=== PATIENT | female | born 1995 | race Caucasian/White ===

== ENCOUNTER 2019-11-13 21:16 | Emergency (ER) | payer OTHER, SELFPAY ==
[2019-11-13 21:21] VITALS: BP 104/67; PULSE 88; RESP 18; TEMP 36.8; O2SAT 99; BMI 28.1
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
[2019-11-13 21:52] LABS: Basophils # 0.1 10^3/uL (0.0-0.1); Basophils % 0.9 %; Eosinophils # 0.2 10^3/uL (0.0-0.8); Eosinophils % 1.6 %; Hematocrit 39.9 % (37.0-47.0); Hemoglobin 12.9 g/dL (11.5-15.3); Lymphocytes # 2.7 10^3/uL (0.8-4.8); Lymphocytes % 26.5 %; Mean Corpuscular HGB Conc 32.3 g/dL (30.0-36.0); Mean Corpuscular Hemoglobin 29.4 pg (28.0-34.0); Mean Corpuscular Volume 90.9 fL (81-99); Mean Platelet Volume 8.8 fL (7.4-10.4); Monocytes # 0.4 10^3/uL (0.2-0.9); Monocytes % 3.6 %; Neutrophils # 6.8 10^3/uL (1.8-7.7); Neutrophils % 67.1 %; Nucleated Red Blood Cells % 0 %; Platelet Count 331 10^3/cmm (130-400); Red Blood Count 4.39 10^6/uL (4.1-5.3); Red Cell Distribution Width 12.3 % (12.1-15.1); White Blood Count 10.2 10^3/uL (4.0-10.0)
[2019-11-13 22:10] LABS: Alanine Aminotransferase 112 U/L (0-33); Albumin Level 4.6 g/dL (3.5-5.2); Alkaline Phosphatase 55 IU/L (35-105); Anion Gap 16.9 (5-19); Aspartate Amino Transferase 62 U/L (0-32); Blood Urea Nitrogen 9 mg/dL (6-20); Calcium 9.7 mg/dL (8.5-10.5); Carbon Dioxide 22 mmol/L (22-29); Chloride 100 mmol/L (98-107); Globulin 2.5 g/dL (1.3-4.6); Glomerular Filtration Rate 120.8 mL/min (90-130); Glucose 179 mg/dL (74-109); Potassium 3.9 mmol/L (3.5-5.1); Sodium 135 mmol/L (136-145); Total Bilirubin 0.9 mg/dL (0.15-1.2); Total Protein 7.1 g/dL (6.6-8.7)
[2019-11-13 22:30] LABS: Bilirubin Urine 1+ (NEGATIVE); Blood Urine Neg (Negative); Glucose Urine UA Norm (Normal); Ketones Urine 1+ (Negative); Leukocyte Esterase Urine Trace (Negative); Nitrate Urine Negative (Negative); Protein Urine Trace (Negative); Urine Appearance Clear (CLEAR); Urine Color Dark Yellow (Yellow); Urobilinogen Urine 1 mg/dL (Negative); pH Urine 5 (5-7)
[2019-11-13 22:31] LABS: Bacteria Urine 1+; Mucus Urine 3+; RBC Urine 0-4 /hpf (0-2)
[2019-11-13 23:08] VITALS: BP 122/73; PULSE 99; RESP 18; O2SAT 96
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
[2019-11-13] MEDS: sodium chloride 0.9% 1,000 ML 999 ML IV (23:54)
[2019-11-13] MEDS: cefTRIAXone 1,000 MG in sodium chloride 0.9% (plus) 50 ML 100 MG IV (23:56)
[2019-11-14 01:45] VITALS: BP 118/74; PULSE 89; RESP 17; O2SAT 100
== END 2019-11-14 01:46 | disposition home or self-care (01) ==
PROVIDERS: Nurse Practitioner Family; Emergency Provider Emergency Medicine; Family Provider Nurse Practitioner Family; PCP Nurse Practitioner Family
DX: O9A.211 Injury, poisoning and certain other consequences of external causes complicating pregnancy, first trimester (principal); S30.1XXA Contusion of abdominal wall, initial encounter; Z3A.01 Less than 8 weeks gestation of pregnancy; O23.41 Unspecified infection of urinary tract in pregnancy, first trimester; Y04.2XXA Assault by strike against or bumped into by another person, initial encounter; Y92.238 Other place in hospital as the place of occurrence of the external cause; Y99.0 Civilian activity done for income or pay
CPT/HCPCS: 76805; 80053; 81001; 84702; 85025; 86900; 96360; 96365; 99282; 99283; A9270; J0696; J7030

== ENCOUNTER → 2019-11-26 10:09 | Outpatient (BNVA) | payer OTHER, SELFPAY | PROVIDERS: Family Provider Nurse Practitioner Family; PCP Nurse Practitioner Family; Referring Provider Family Medicine; Visit Provider Family Medicine | DX: Z34.91 Encounter for supervision of normal pregnancy, unspecified, first trimester (principal); Z87.440 Personal history of urinary (tract) infections; S30.1XXA Contusion of abdominal wall, initial encounter; X58.XXXA Exposure to other specified factors, initial encounter | CPT/HCPCS: 81003 ==

== ENCOUNTER → 2020-01-08 11:56 | Outpatient (BNVA) | payer OTHER, SELFPAY | PROVIDERS: Family Provider Nurse Practitioner Family; PCP Nurse Practitioner Family; Visit Provider Registered Nurse | DX: N39.0 Urinary tract infection, site not specified (principal) | CPT/HCPCS: 81000; 81025 ==

== ENCOUNTER → 2020-02-12 14:22 | Outpatient (BNVA) | payer OTHER, SELFPAY | PROVIDERS: Family Provider Nurse Practitioner Family; PCP Nurse Practitioner Family; Visit Provider Registered Nurse | DX: N91.2 Amenorrhea, unspecified (principal) | CPT/HCPCS: 81025 ==

== ENCOUNTER 2020-03-04 10:39 | Outpatient (CLI) | payer OTHER, SELFPAY ==
--- NOTE | 2020-03-04 10:48 | US_ITS ---
WS: [id number] ULTRASOUND EARLY TECHNIQUE: Transabdominal sonography of the pelvis was performed. Followed by transvaginal sonography to better evaluate the uterus and ovaries. CLINICAL INFORMATION: ENCOUNTER FO SCREENING FOR UNCERTAIN DATES Beta hCG: Unknown. COMPARISON: None. FINDINGS: UTERUS AND GESTATIONAL SAC Intrauterine gestations: Cervix measures 4.5 cm Estimated gestational age: 10w5d. Estimated delivery September 25, 2020 [place] rump length (CRL): 3.8 cm. heart motion: 167 BPM. Subchorionic hemorrhage: None. OVARIES Right ovary: Normal. Left ovary: Not visualized FREE FLUID None. 2. Estimated gestational age: 10w5d 3. Cervix measures 4.5 cm. 4. Normal right ovary. Left ovary not visualized. US/US OB <= 14 weeks fetus [id number] IMPRESSION: 1. Single live intrauterine .
== END 2020-03-04 10:40 | disposition home or self-care (01) ==
LOC: RAD 10:43
PROVIDERS: PCP Registered Nurse; Visit Provider Family Medicine
DX: Z36.87 Encounter for antenatal screening for uncertain dates (principal)
CPT/HCPCS: 76801

== ENCOUNTER 2020-04-20 14:13 | Emergency (ER) | payer OTHER, SELFPAY ==
[2020-04-20 14:28] VITALS: BP 107/68; PULSE 97; RESP 16; TEMP 36.6; O2SAT 97; BMI 29.8
--- NOTE | 2020-04-20 14:50 | W.ED.PREGNAN ---
HPI - General: Chief complaint: OB/Uterine Contractions Stated complaint: sent over by vincent Time Seen by Provider: 04/20/20 14:43 Source: patient Mode of arrival: ambulatory Limitations: no limitations History of Present Illness: HPI Narrative: 24-year-old female who is currently 17 weeks . Patient states she has not felt the baby move since Saturday and was concerned that she has had miscarriages in the past. She denies any vaginal bleeding. She denies any vomiting. She has had very mild abdominal pain. Date of Last Menstrual Period: 10/10/19 Associated symptoms: Deny abdominal pain, dysuria, headache(s), nausea or vomiting Review of Systems Const: Denies: fever(s), chills, body aches or change in appetite Eyes: Denies: blurry vision or eye discomfort ENMT: Denies: throat pain or dental pain Card: Denies: chest pain Resp: Denies: dyspnea GI: Denies: abdominal pain, nausea, vomiting or diarrhea : Denies: dysuria Musc: Denies: neck pain or back pain Skin/Breast: Denies: rash Neuro: Denies: headache(s) Psych: Denies: depression [place]/Lymph: Denies: easy bruising All/Imm: Denies: urticaria PFSH ED PFSH: Social History Smoking and tobacco status: never smoked Alcohol intake: never Female Reproductive History: Date of last menstrual period: 10/10/19 Physical Exam Const: COMMON NORMALS: no acute distress, patient oriented x3 and healthy appearing HENMT: COMMON NORMALS: normocephalic and atraumatic HEAD & SCALP: normocephalic and atraumatic Eye: COMMON NORMALS: Equal, round and reactive pupils present and EOMs intact bilaterally PUPIL: Yes Equal, round and reactive pupils present Neck/C-Spine: COMMON NORMALS: full ROM and supple Chest: COMMONS NORMALS: normal inspection of the chest and normal palpation of entire chest wall Resp: COMMON NORMALS: normal respiratory effort, No retractions, No use of accessory muscles and clear to auscultation bilaterally AUSCULTATION: clear to auscultation bilaterally Cardio: COMMON NORMALS: regular rate, regular rhythm and No murmurs present (Cardio) RATE: regular rate RHYTHM: regular rhythm GI: COMMON NORMALS: Normal to inspection, nondistended, normoactive bowel sounds present, Soft to palpation, non-tender and no masses PALPATION: Yes Soft to palpation Extremity: COMMON NORMALS: normal to inspection and full ROM Neuro: COMMON NORMALS: patient oriented x3, moves all extremities and no focal motor deficits Psych: COMMON NORMALS: mental status grossly normal, Normal thought process present and cooperative THOUGHT PROCESS: Normal thought process present Skin: COMMON NORMALS: no rashes or lesions noted and no wounds GENERAL SKIN EXAM: no rashes or lesions noted Course Vital Signs: Vital signs: Vital Signs Temperature 97.9 F 04/20/20 14:28 Pulse Rate 89 04/20/20 14:56 Respiratory Rate 18 04/20/20 14:56 Blood Pressure 99/64 04/20/20 14:56 Pulse Oximetry 97 04/20/20 14:56 MDM - OB/Uterine Contractions MDM Narrative: Medical decision making narrative: Patient presents here with decreased movement. I did a bedside ultrasound that showed IUP with movement and heart rate in the 150s. Patient is well-appearing here and is stable for discharge. Discharge Plan Discharge Patient Disposition: Home, Self-Care Clinical Impression: Qualifiers: Weeks of gestation: 15 weeks Qualified Code(s): Z3A.15 - 15 weeks gestation of Condition: Stable Prescriptions: No Action prenat.vits,khushbu,caw-[id number] Tablet 1 tab PO DAILY RF: 0 Discharge Orders: Discharge Order (Routine); Ordered 04/20/20 Ordered By: Oliva Sanders Referrals: Chelsy Medina FNP [Primary Care Provider] - Discharge Diet: Advance as tolerated Discharge Activity: Resume usual activity Patient Instructions: (ED) Coding Level of Care Code ED Strategic Debriefing Specialist for Chg Fwd Exam Comprehensive
[2020-04-20 14:56] VITALS: BP 99/64; PULSE 89; RESP 18; O2SAT 97
== END 2020-04-20 14:56 | disposition home or self-care (01) ==
LOC: ER 15:00
PROVIDERS: Emergency Provider Emergency Medicine; PCP Registered Nurse
DX: Z03.89 Encounter for observation for other suspected diseases and conditions ruled out (principal)
CPT/HCPCS: 12345; 99281

== ENCOUNTER 2020-04-27 06:53 | Outpatient (CLI) | payer OTHER, SELFPAY ==
--- NOTE | 2020-04-27 07:23 | US_ITS ---
WS: [id number] ULTRASOUND OB COMPLETE TECHNIQUE: Complete ultrasound. CLINICAL INFORMATION: SUSANA COMPARISON: None. FINDINGS: Single interuterine gestation is identified with cephalic presentation. Placenta is posterior. Placenta grade 0. Normal amniotic fluid volume. cardiac activity: 150 BPM. AGA: 18w3d TAMANNA by ultrasound: 09/25/2020 Estimated weight: 239 g BDP: 4.1 cm = 18w2d HC: 15.4 cm = 18w2d AC: 12.9 cm = 18w3d FEMUR LENGTH: 2.7 cm = 18w3d Anatomic survey: Anatomic survey is normal. Normal stomach. Kidneys and bladder are normal. Normal 3 vessel cord. Norm al 3 vessel cord insertion. Normal 4 chamber heart. Normal spine. Intracranial contents are normal. N ormal posterior fossa and cisterna magna. US/US OB >= 14 weeks fetus [id number] IMPRESSION: 1. Single intrauterine with visualized cardiac activity. AGA 18w3d w ith TAMANNA 09/25/2020. 2. Placenta is posterior. Low-lying placenta. Recommend third trimester follow -up. 3. anatomic survey is normal. 4. Normal amniotic fluid volume.
== END 2020-04-27 06:54 | disposition home or self-care (01) ==
LOC: RAD 06:55
PROVIDERS: PCP Registered Nurse; Visit Provider Family Medicine
DX: Z36.89 Encounter for other specified antenatal screening (principal); Z3A.18 18 weeks gestation of pregnancy
CPT/HCPCS: 76805

== ENCOUNTER 2020-05-27 11:49 | Outpatient (CLI) | payer OTHER, SELFPAY ==
[2020-05-27 13:20] LABS: Basophils % 0.3 %; Eosinophils # 0.1 10^3/uL (0.0-0.8); Eosinophils % 0.9 %; Hematocrit 30.5 % (37.0-47.0); Hemoglobin 9.7 g/dL (11.5-15.3); Lymphocytes # 2.2 10^3/uL (0.8-4.8); Mean Corpuscular HGB Conc 31.8 g/dL (30.0-36.0); Mean Platelet Volume 8.8 fL (7.4-10.4); Monocytes # 0.6 10^3/uL (0.2-0.9); Neutrophils # 6.56 10^3/uL (1.8-7.7); Neutrophils % 69.2 %; Nucleated Red Blood Cells % 0 %; Platelet Count 303 10^3/cmm (130-400); Red Blood Count 3.35 10^6/uL (4.1-5.3); Red Cell Distribution Width 13.8 % (12.1-15.1); White Blood Count 9.5 10^3/uL (4.0-10.0)
[2020-05-27 13:24] LABS: Specific Gravity, Urine 1.015 (1.005-1.030); Urine Appearance SL Hazy (CLEAR); Urine Color Yellow (Yellow); pH Urine 6.5 (5-7)
[2020-05-27 13:25] LABS: Add Urine Microscopic? YES; Bilirubin Urine Neg (NEGATIVE); Blood Urine Neg (Negative); Glucose Urine UA Norm (Normal); Ketones Urine Negative (Negative); Leukocyte Esterase Urine Trace (Negative); Nitrate Urine Negative (Negative); Protein Urine Neg (Negative); Squamous Epithelial Cell Urine 25-40 (0-5); Urobilinogen Urine 1 mg/dL (Negative); WBC Urine 0-4 /hpf (0-5)
[2020-05-27 13:26] LABS: Add Urine Culture? No; Bacteria Urine 1+; Mucus Urine 3+
[2020-05-27 13:30] LABS: Blood Urea Nitrogen 8 mg/dL (6-20); Calcium 9.1 mg/dL (8.5-10.5); Carbon Dioxide 24 mmol/L (22-29); Chloride 99 mmol/L (98-107); Glomerular Filtration Rate 192.9 mL/min (90-130); Glucose 87 mg/dL (65-115); Osmolality Calculated 269 mOsm/kg (285-295); Sodium 132 mmol/L (136-145)
[2020-05-27 13:38] LABS: Anion Gap 12.9 (5-19); Potassium 3.9 mmol/L (3.5-5.1)
== END 2020-05-27 11:50 | disposition home or self-care (01) ==
LOC: LAB 11:50
PROVIDERS: PCP Registered Nurse; Visit Provider Nurse Practitioner Family
DX: R42 Dizziness and giddiness (principal)
CPT/HCPCS: 80048; 81001; 85025

== ENCOUNTER 2020-07-03 09:00 | Outpatient (CLI) | payer OTHER, SELFPAY ==
[2020-07-03 09:07] VITALS: TEMP 37.1; BMI 33.7
[2020-07-03 09:28] LABS: Nitrazine Paper, PH Negative
[2020-07-03 09:42] LABS: Actim Prom Negative
[2020-07-03 09:43] VITALS: BP 111/61; BP 132/69; PULSE 100; PULSE 94
[2020-07-03 09:54] VITALS: BP 100/51; PULSE 97
== END 2020-07-03 10:01 | disposition home or self-care (01) ==
LOC: OPOB 09:05 → OBGYN 09:58
PROVIDERS: PCP Registered Nurse; Visit Provider Family Medicine
DX: O42.90 Premature rupture of membranes, unspecified as to length of time between rupture and onset of labor, unspecified weeks of gestation (principal); Z3A.00 Weeks of gestation of pregnancy not specified
CPT/HCPCS: 59025; 83986; 84112; 99211

== ENCOUNTER 2020-07-05 10:32 | Outpatient (CLI) | payer OTHER, SELFPAY ==
--- NOTE | 2020-07-05 10:42 | US_ITS ---
WS: [id number] ULTRASOUND OB LIMITED TECHNIQUE: Limited ultrasound examination of the fetus. CLINICAL INFORMATION: LOW LYING PLACENTA/SUPERVISION NORMAL COMPARISON: None. FINDINGS: Cervix measures 5.1 cm Single interuterine gestation. Placental location is posterior. Placenta previa is seen today with placenta overlying the cervical o s. Recommend third trimester follow-up. Placenta grade: 0. heart rate 150 BPM. [place] [id number] IMPRESSION: 1. Single intrauterine gestation. 2. Placenta is posterior with placenta previa. Placenta appears to overlie the cervical os. Recommend third trimester follow-up. 3. Cervix is long and closed measuring 5.1 cm.
== END 2020-07-05 10:33 | disposition home or self-care (01) ==
LOC: RAD 10:35
PROVIDERS: PCP Registered Nurse; Visit Provider Family Medicine
DX: O44.00 Complete placenta previa NOS or without hemorrhage, unspecified trimester
CPT/HCPCS: 76816

== ENCOUNTER 2020-07-27 10:11 | Outpatient (CLI) | payer OTHER, SELFPAY ==
--- NOTE | 2020-07-27 10:19 | US_ITS ---
WS: [id number] ULTRASOUND OB FOCUSED HISTORY: HIGH RISK ,3RD TRIMESTER/PLACENTA PREVIA COMPARISON: 07/05/2020 Placenta is posterior and grade 1. The very tip of the placenta is within 2 cm of the internal cervic al os and considered low lying. heart rate at 138 BPM. There is an abundant amount of amniotic fluid. Amniotic fluid index is 27.5 cm which is consistent wi th polyhydramnios. Fluid is above the 97th percentile. Fluid has increased since the prior study. This is a limited evaluation of the fetus. The urinary bladder and stomach are well distended. [place] [id number] IMPRESSION: 1. Posterior low-lying placenta. 2. Polyhydramnios. Significant increase in the amount of amniotic fluid since the prior study of uncertain etiology.
== END 2020-07-27 10:12 | disposition home or self-care (01) ==
LOC: US 10:12
PROVIDERS: PCP Registered Nurse; Visit Provider Family Medicine
DX: O09.93 Supervision of high risk pregnancy, unspecified, third trimester (principal); O44.12 Complete placenta previa with hemorrhage, second trimester; O40.3XX0 Polyhydramnios, third trimester, not applicable or unspecified
CPT/HCPCS: 76816

== ENCOUNTER 2020-08-22 14:05 | Observation (INO) | payer OTHER, SELFPAY ==
[2020-08-22 14:15] VITALS: BMI 34.1
[2020-08-22 14:42] VITALS: BP 110/72; PULSE 100
[2020-08-22 14:59] VITALS: BP 116/73; PULSE 96
[2020-08-22 15:19] VITALS: BP 114/67; PULSE 98
[2020-08-22 15:36] VITALS: BP 114/67; PULSE 98
== END 2020-08-22 15:37 | disposition home or self-care (01) ==
LOC: OBGYN 14:14
PROVIDERS: Admitting Provider Family Medicine; PCP Registered Nurse; Visit Provider Family Medicine
DX: O26.899 Other specified pregnancy related conditions, unspecified trimester (principal); Z3A.00 Weeks of gestation of pregnancy not specified; R10.9 Unspecified abdominal pain
CPT/HCPCS: 59025; 99211; G0378; G0379

== ENCOUNTER 2020-08-26 12:57 | Outpatient (CLI) | payer OTHER, SELFPAY ==
[2020-08-26 13:23] LABS: Basophils % 0.1 %; Eosinophils # 0.2 10^3/uL (0.0-0.8); Eosinophils % 2.3 %; Hematocrit 28.8 % (37.0-47.0); Lymphocytes # 1.7 10^3/uL (0.8-4.8); Lymphocytes % 22.3 %; Mean Corpuscular HGB Conc 31.3 g/dL (30.0-36.0); Mean Corpuscular Hemoglobin 26.7 pg (28.0-34.0); Mean Corpuscular Volume 85.5 fL (81-99); Mean Platelet Volume 8.8 fL (7.4-10.4); Monocytes # 0.5 10^3/uL (0.2-0.9); Monocytes % 6.4 %; Neutrophils # 5.23 10^3/uL (1.8-7.7); Neutrophils % 68.2 %; Nucleated Red Blood Cells % 0 %; Platelet Count 237 10^3/cmm (130-400); Red Blood Count 3.37 10^6/uL (4.1-5.3); Red Cell Distribution Width 15.9 % (12.1-15.1); White Blood Count 7.7 10^3/uL (4.0-10.0)
[2020-08-26 13:41] LABS: Alanine Aminotransferase 24 U/L (0-33); Albumin Level 3.4 g/dL (3.5-5.2); Alkaline Phosphatase 121 IU/L (35-105); Anion Gap 13.9 (5-19); Aspartate Amino Transferase 28 U/L (0-32); Blood Urea Nitrogen 6 mg/dL (6-20); Calcium 8.9 mg/dL (8.5-10.5); Carbon Dioxide 23 mmol/L (22-29); Chloride 103 mmol/L (98-107); Globulin 2.7 g/dL (1.3-4.6); Glomerular Filtration Rate 191.5 mL/min (90-130); Glucose 109 mg/dL (65-115); Osmolality Calculated 280 mOsm/kg (285-295); Potassium 3.9 mmol/L (3.5-5.1); Sodium 136 mmol/L (136-145); Total Bilirubin 0.6 mg/dL (0.15-1.2); Total Protein 6.1 g/dL (6.6-8.7); Uric Acid 4.5 mg/dL (2.4-5.7)
[2020-08-26 13:54] LABS: Urine Creatinine 151 mg/dL (28-217); Urine Protein Random 20 mg/dL
[2020-08-26 13:59] LABS: UPRO/UCREAT Ratio 0.13 mg/mg CR
== END 2020-08-26 12:58 | disposition home or self-care (01) ==
LOC: LAB 13:01
PROVIDERS: PCP Registered Nurse; Visit Provider Family Medicine
DX: O40.3XX0 Polyhydramnios, third trimester, not applicable or unspecified (principal); L29.9 Pruritus, unspecified
CPT/HCPCS: 80053; 82570; 84156; 84550; 85025

== ENCOUNTER 2020-09-25 17:10 | Inpatient (IN) | payer OTHER, SELFPAY ==
[2020-09-25] VITALS (38 sets, daily range): BP systolic 0–136; BP diastolic 0–80; PULSE 78–105; RESP 16; TEMP 36.7–36.8; BMI 36.4
--- NOTE | 2020-09-25 20:09 | PM.HP ---
Providers/Chief Complaint Admitting Physician: Robin Gudino MD Primary Care Provider: SHEBA Aguayo Chief Complaint: Induction of Labor History of Present Illness Tisha Feliz is a 25 year old at 40.1 weeks gestation by 10-week ultrasound inconsistent with LMP. Her is complicated by history of gestational hypertension on aspirin 81 mg during this through 37 weeks, history of frequent miscarriage, anemia. The patient has been feeling well and presents for a scheduled induction of labor due to postdates. The patient denies any chest pains, shortness of breath, cough, fever, sore throat, nausea, vomiting, diarrhea, constipation, dysuria, leakage of fluid, vaginal bleeding. Medications/Allergies Home Medications Medication Instructions Recorded Confirmed Last Taken Type prenat.vits,khushbu,nsq-seba-qlbuf 1 tab PO DAILY 03/24/20 08/16/20 07/03/20 08:00 History 1 tab aspirin [Aspirin Childrens] 81 mg PO DAILY 07/03/20 08/16/20 07/03/20 08:00 History 81 mg acetaminophen 500 mg tablet 500 mg PO Q6H PRN 08/16/20 08/16/20 Unknown History ferrous sulfate 325 mg (65 mg 325 mg PO BID tab 08/16/20 08/16/20 Unknown History iron) tablet Allergies Allergy/AdvReac Type Severity Reaction Status Date / Time No Known Allergies Allergy Verified 08/16/20 09:18 PFSH Acute PFSH: Medical History (Updated 09/25/20 @ 20:11 by Robin Gudino MD) Request for sterilization Family History (Updated 08/16/20 @ 09:21 by Linda Galicia RN) Family/Other Thyroid condition maternal aunts Mother Thyroid condition Denies family history of Colon cancer Ovarian cancer Diabetes Clotting disorder Heart disease Hyperlipidemia Breast cancer Anesthesia complication Bleeding disorder Hypertension Uterine cancer Stroke Social History Smoking and tobacco status: never smoked Alcohol intake: never Female Reproductive History: Date of last menstrual period: 10/10/19 : 4 Vitals/I&O/Wt Last Vital Signs Temp 98.2 F 09/25/20 17:46 Pulse 86 09/25/20 19:56 Resp 16 09/25/20 17:46 BP 120/75 12/13/20 19:56 Weight last 48 hrs Weight 219 lb Physical Exam Narrative: EXAM NARRATIVE: General: Alert and oriented x3 Eyes: Pupils equal round and reactive to light and accommodation Mouth: Mucous membranes moist, pharynx non-erythematous Cardiac: Regular rate and rhythm without murmurs Lungs: Clear to auscultation bilaterally without wheezes, crackles or rhonchi Abdomen: Soft, non-tender, fundus consistent with gestational age Extremities: Trace edema in the bilateral lower extremities A&P Assessment and plan (1) Anemia: Status: Acute (2) Intrauterine : Status: Acute Additional A&P Information The patient presents for induction of labor secondary to postdates. heart tones are currently in the mid 140s with moderate variability and good accelerations. The patient is having contractions every 7 to 10 minutes. The patient's initial exam was 1 cm and thick. The is vertex. We will proceed with induction of labor with Cytotec. I discussed the benefits and risks of induction of labor and the use of Cytotec and Pitocin with the patient and her significant other. They are in agreement with proceeding with induction of labor. All questions were answered. Attestations Medical Necessity Statement*: The patient will be here for greater than 2 midnights due to routine intrapartum and management of labor and delivery. Coding Level of Care Code Acute Sprinkling Truck Driver for Isrealg Caprice Diagnoses Anemia D64.9 Intrauterine Z34.90
[2020-09-25 21:07] LABS: Basophils # 0.1 10^3/uL (0.0-0.1); Basophils % 0.6 %; Eosinophils # 0.1 10^3/uL (0.0-0.8); Eosinophils % 0.6 %; Hematocrit 34.5 % (37.0-47.0); Hemoglobin 11.2 g/dL (11.5-15.3); Lymphocytes # 2.2 10^3/uL (0.8-4.8); Lymphocytes % 27.6 %; Mean Corpuscular HGB Conc 32.5 g/dL (30.0-36.0); Mean Corpuscular Hemoglobin 28.1 pg (28.0-34.0); Mean Corpuscular Volume 86.7 fL (81-99); Monocytes # 0.4 10^3/uL (0.2-0.9); Monocytes % 4.9 %; Neutrophils # 5.35 10^3/uL (1.8-7.7); Neutrophils % 65.9 %; Nucleated Red Blood Cells % 0 %; Platelet Count 237 10^3/cmm (130-400); Red Blood Count 3.98 10^6/uL (4.1-5.3); Red Cell Distribution Width 19.1 % (12.1-15.1); White Blood Count 8.1 10^3/uL (4.0-10.0)
[2020-09-25] MEDS: dextrose 5%-lactated ringers 1,000 ML 125 ML IV (21:09)
[2020-09-25] MEDS: miSOPROStol 100 mcg tablet 25 MCG VAGINAL (21:42)
[2020-09-26] VITALS (95 sets, daily range): BP systolic 0–153; BP diastolic 0–89; PULSE 65–97; RESP 14–18; TEMP 36.4–36.8; O2SAT 94–98
[2020-09-26] MEDS: miSOPROStol 100 mcg tablet 25 MCG VAGINAL (01:51)
[2020-09-26] MEDS: butorphanol 2 mg/mL SDV 1 mL 1 MG IVP (03:47)
[2020-09-26] MEDS: lactated ringers 1,000 ML 999 ML IV (05:14)
--- NOTE | 2020-09-26 06:53 | ANES.PREANE2 ---
Pre-Anesthetic Assessment Pre-Anesthetic Assessment: Height/Weight: Height 1.65 m Weight 99.337 kg Temp Pulse Resp BP Pulse Ox 97.8 F 82 14 134/73 97 09/26/20 04:43 09/26/20 06:52 09/26/20 04:43 09/26/20 06:52 09/26/20 06:41 Preop Diagnosis: IUP Meds/Allergies Current Medications: Current Medications Generic Name Dose Route Start Last Admin Trade Name Freq PRN Reason Stop Dose Admin Butorphanol Tartra te 1 mg 09/25/20 17:45 09/26/20 03:47 Butorphanol 2 Mg /Ml Sdv 1 Ml IVP 1 mg Q2H PRN Administration SEVERE PAIN Dextrose/Lactated Ringer's 1,000 mls @ 125 m ls/hr 09/25/20 17:45 09/26/20 05:31 Dextrose 5%-Lact ated Ringers IV Not Given .Q8H MELANIE Lactated Ringer's 1,000 mls @ 999 m ls/hr 09/26/20 05:27 09/26/20 05:14 Lactated Ringers IV 999 mls/hr .Q1H1M PRN Administration See label comment s PFSH Anesthesia PFSH: Medical History (Updated 09/25/20 @ 20:11 by Robin Gudino MD) Request for sterilization Family History (Updated 08/16/20 @ 09:21 by Linda Galicia RN) Family/Other Thyroid condition maternal aunts Mother Thyroid condition Denies family history of Colon cancer Ovarian cancer Diabetes Clotting disorder Heart disease Hyperlipidemia Breast cancer Anesthesia complication Bleeding disorder Hypertension Uterine cancer Stroke Social History Smoking and tobacco status: never smoked Alcohol intake: never Female Reproductive History: Date of last menstrual period: 10/10/19 : 4 Data Anesthesia CBC & Chem 7: 09/25/20 20:42 Other Labs: Laboratory Results - last 48 hr 09/25/20 20:42 WBC 8.1 RBC 3.98 L Hgb 11.2 L Hct 34.5 L MCV 86.7 MCH 28.1 MCHC 32.5 RDW 19.1 H Plt Count 237 MPV 9.0 Neut % (Auto) 65.9 Lymph % (Auto) 27.6 [place] % (Auto) 4.9 Eos % (Auto) 0.6 Baso % (Auto) 0.6 Neut # (Auto) 5.35 Lymph # (Auto) 2.2 [place] # (Auto) 0.4 Eos # (Auto) 0.1 Baso # (Auto) 0.1 Nucleated RBC % (auto) 0 Nucleated RBCs # 0.0 Cardiac Studies: No Data to Display Anesthesia Procedures Date of Procedure: 09/26/20 Epidural: Time Out Performed: Yes Consents Signed: Procedure Consent and NPO Consent Consent: requested by attending/covering physician, from patient, risks and benefits reviewed and patient agrees to proceed Lumbar Level: L3-L4 Epidural position: sitting (100 mcg fentanyl given for pain ) Epidural procedure: sterile prep of area, 1% lidocaine to numb the area (3 cc ), 18 g needle (L3-L4 interspace ), test dose given (3c ), 0.2% Ropivacaine bolus ml (8 cc ), placed PCEA, no systemic response, sterile dressing applied and 0.2% Ropiavacaine @ mls/hr (13 mls/hr ) Additional Comments: A[place] @ 8 cm catheter threaded to 14 cm at skin, pt states she is feeling less pain wit contractions an legs are heavy bilaterally. Pt VSS see OBYX system
--- NOTE | 2020-09-26 07:49 | PM.PN ---
Subjective Subjective: Interval history: The patient is currently feeling well. Her water broke at approximately 3 AM today. Clear fluid was noted. The patient received a laboring epidural and is currently comfortable. She denies any other concerns. Vitals/I&O/Wt Last Vital Signs Temp 97.8 F 09/26/20 04:43 Pulse 91 09/26/20 07:43 Resp 14 09/26/20 04:43 BP 126/81 09/26/20 07:43 Pulse Ox 97 09/26/20 06:41 09/25/20 09/26/20 09/26/20 22:59 06:59 14:59 Intake Total 197.917 / 197.917 529.167 / 727.084 Balance 197.917 / 197.917 529.167 / 727.084 Weight last 48 hrs Weight 219 lb Physical Exam Narrative: EXAM NARRATIVE: General: Alert and oriented x3 Cardiac: Regular rate and rhythm without murmurs Lungs: Clear to auscultation bilaterally without wheezes, crackles or rhonchi Abdomen: Soft, non-tender, fundus consistent with gestational age Extremities: Trace edema in the bilateral lower extremities Urinary Catheter Management^: Nicholson: Cath Placed During This Visit: yes Urinary Catheter Date of Insertion: 09/26/20 Urinary Catheter Time of Insertion: 07:25 Data : 09/25/20 20:42 A&P Assessment and plan (1) Anemia: Status: Acute (2) Intrauterine : Status: Acute Additional A&P Information The patient is currently doing well. We will go ahead and start IV Pitocin for augmentation of labor. Contractions are currently every 5 minutes. heart tones are in the mid 130s with moderate variability and good accelerations. The patient is comfortable with her epidural. All questions were answered. Attestations Medical Necessity Statement*: The patient continues to need inpatient care as we continue with induction of labor. Her stay will cross 2 midnights. Coding Level of Care Code Acute Retail Key Holder for Chg Fwd Diagnoses Anemia D64.9 Intrauterine Z34.90
[2020-09-26] MEDS: oxytocin 30 UNIT/500 ML BAG IV (08:04)
[2020-09-26] MEDS: ondansetron 2 mg/ML SDV 2 mL 4 MG IVP ×3 (10:27→21:41)
--- NOTE | 2020-09-26 11:38 | P.PCNOB_ITS ---
Delivery Note: Date of delivery: September 26, 2020 Pre-delivery diagnoses: 1. Intrauterine at 40.2 weeks gestation 2. Anemia 3. History of gestational hypertension on aspirin through 37 weeks gestation Post-delivery diagnoses: 1. Intrauterine status post spontaneous vaginal delivery at 40.2 weeks gestation 2. Anemia 3. History of gestational hypertension on aspirin through 37 weeks gestation 4. Delivery of healthy infant female weighing 9 pounds 6 ounces with Apgars of 8 and 9 Procedure: Spontaneous vaginal delivery Op report anesthesia: Epidural Estimated blood loss (mL): 125 Findings: 1. Delivery of healthy female weighing 9 pounds 6 ounces with Apgars of 8 and 9 2. Large intact placenta with a central umbilical cord insertion site Pre-Delivery Course: The patient presented to labor and delivery triage secondary to a scheduled induction of labor for postdates. The patient was started on Cytotec on the evening of 09/25/2020. She received 2 doses and at approximately 3:00 AM on 09/26/2020, SROM took place. Clear fluid was noted. The patient continued to make change and was approximately 3 cm dilated by 8:00 AM on 09/26/2020. She is alon sporadically, so IV Pitocin was started to augment labor. There were no concerning heart tone decelerations. The patient continued to make change and was complete by 10:59 AM on 09/26/2020. Delivery: The patient began pushing at 10:59 AM on 09/26/2020. The patient pushed well and the delivered in the OA position at 11:09 AM on 09/26/2020. A nuchal cord was present, however could not be reduced, so the was delivered through it. The right shoulder was the anterior shoulder and it delivered with steady downward pressure. The left shoulder delivered with upward pressure. The rest of the infant delivered without complication. The 's mouth and nose were bulb suctioned by myself and the infant began crying shortly after delivery. The infant was placed on the mother's chest where the nurses were waiting to care for her. The cord was clamped by myself after approximately 1 minute and cut by the 's father. Cord blood was obtained and the cord was then drained of blood. Uterine massage was carried out and traction was placed on the umbilical cord. The placenta delivered without complication at 11:20 AM on 09/26/2020. The placenta was noted to be very large and intact with a central umbilical cord insertion site. The uterus was massaged and bleeding was initially moderate, however has slowed down. The cervix was inspected and no lacerations were noted. The vaginal wall was inspected and a minimal abrasion was noted at the perineum that did not need stitches. Currently the patient and infant are doing very well. The patient's bleeding is mild at this time. We will watch for any signs of complications. A&P Assessment and plan (1) Anemia: Status: Acute (2) Intrauterine : Status: Acute Coding Level of Care Code Acute Child Care Centre Manager for Chg Fwd Diagnoses Anemia D64.9 Intrauterine Z34.90
[2020-09-26] MEDS: benzocaine-menthol 78 gm Canister 1 SPRAY TOPICAL (13:06)
[2020-09-26] MEDS: lanolin oint 7 gm 1 APPLIC TOPICAL (13:07)
--- NOTE | 2020-09-26 15:05 | PC.NURSE ---
Pt to via wheelchair. Pt tolerated well. Pt oriented to room 204. Pt instructed to notify staff when getting up to void so she could receive assistance. Pt verbalized understanding.
[2020-09-26] MEDS: ibuprofen 800 mg tablet PO ×2 (15:41→22:48)
[2020-09-26 23:42] LABS: Hematocrit 31.3 % (37.0-47.0); Mean Corpuscular HGB Conc 31.9 g/dL (30.0-36.0); Mean Corpuscular Hemoglobin 27.9 pg (28.0-34.0); Mean Corpuscular Volume 87.4 fL (81-99); Platelet Count 204 10^3/cmm (130-400); Red Blood Count 3.58 10^6/uL (4.1-5.3); Red Cell Distribution Width 18.9 % (12.1-15.1); White Blood Count 10.3 10^3/uL (4.0-10.0)
--- NOTE | 2020-09-27 00:04 | PC.NURSE ---
Unable to obtain Hemagram, so lab was called to the OB floor.
--- NOTE | 2020-09-27 00:06 | PC.NURSE ---
Lab in room to obtain Hemagram
--- NOTE | 2020-09-27 00:07 | PC.NURSE ---
Pt. had just gotten up to the bathroom
[2020-09-27 01:30] VITALS: BP 114/68; PULSE 84; RESP 16; TEMP 36.8; O2SAT 98
--- NOTE | 2020-09-27 04:31 | PC.NURSE ---
Lab to [facility] for blood draw
[2020-09-27 05:20] VITALS: BP 136/82; PULSE 77; RESP 18; TEMP 36.7; O2SAT 98
[2020-09-27] MEDS: HYDROcodone-acetaminophen 5-325 mg Tablet PO ×2 (05:34→06:22)
--- NOTE | 2020-09-27 08:28 | P.DS_ITS ---
Discharge Providers Date of Admission: 09/25/20 17:10 Date of Discharge: September 27, 2020 Attending Provider at Admission: Robin Gudino MD Attending Provider at Discharge: Robin Gudino MD Primary Care Provider: SHEBA Aguayo Diagnoses at Discharge Discharge Diagnosis (1) Anemia: Status: Resolved (2) Intrauterine : Status: Resolved Reason for Visit Reason for Visit: Induction of Labor Hospital Course Hospital Course The patient presented to labor and delivery triage secondary to a scheduled induction of labor for postdates. The patient was started on Cytotec on the evening of 09/25/2020. She received 2 doses and at approximately 3:00 AM on 09/26/2020, SROM took place. Clear fluid was noted. The patient continued to make change and was approximately 3 cm dilated by 8:00 AM on 09/26/2020. She is alon sporadically, so IV Pitocin was started to augment labor. There were no concerning heart tone decelerations. The patient continued to make change and was complete by 10:59 AM on 09/26/2020. Delivery: The patient began pushing at 10:59 AM on 09/26/2020. The patient pushed well and the delivered in the OA position at 11:09 AM on 09/26/2020. A nuchal cord was present, however could not be reduced, so the was delivered through it. The right shoulder was the anterior shoulder and it delivered with steady downward pressure. The left shoulder delivered with upward pressure. The rest of the infant delivered without complication. The infant's mouth and nose were bulb suctioned by myself and the infant began crying shortly after delivery. The was placed on the mother's chest where the nurses were waiting to care for her. The cord was clamped by myself after approximately 1 minute and cut by the 's father. Cord blood was obt ained and the cord was then drained of blood. Uterine massage was carried out and traction was placed on the umbilical cord. The placenta delivered without complication at 11:20 AM on 09/26/2020. The placenta was noted to be very large and intact with a central umbilical cord insertion site. The uterus was massaged and bleeding was initially moderate, however has slowed down. The cervix was inspected and no lacerations were noted. The vaginal wall was inspected and a minimal abrasion was noted at the perineum that did not need stitches. Currently the patient and infant are doing very well. The patient's bleeding is mild at this time. We will watch for any signs of complications. the patient has done well without complications. Her bleeding has decreased well. Her pain has been well controlled. She is ambulating, voiding, passing gas and tolerating food by mouth. Routine instructions were discussed. The patient will follow-up with me at 6 weeks . All questions were answered. Physical Exam Narrative: EXAM NARRATIVE: General: Alert and oriented x3 Cardiac: Regular rate and rhythm without murmurs Lungs: Clear to auscultation bilaterally without wheezes, crackles or rhonchi Abdomen: Soft, non-tender, fundus consistent with gestational age Extremities: +1 edema in the bilateral lower extremities Urinary Catheter Management^: Nicholson: Cath Placed During This Visit: yes, but has since been removed by the nurse Reason for Continuing Indwelling Catheter: Decision to DC Catheter Urinary Catheter Date of Insertion: 09/26/20 Urinary Catheter Time of Insertion: 07:25 Date Urinary Catheter Removed: 09/26/20 Time Urinary Catheter Discontinued: 10:55 Discharge Data Data Completed and Pending: Labs from last 24 hours 09/26/20 23:39 WBC 10.3 H RBC 3.58 L Hgb 10.0 L Hct 31.3 L MCV 87.4 MCH 27.9 L MCHC 31.9 RDW 18.9 H Plt Count 204 MPV 9.0 Vitals: Last Vital Signs Temp 98.0 F 09/27/20 05:20 Pulse 77 09/27/20 05:20 Resp 18 09/27/20 05:20 BP 136/82 09/27/20 05:20 Pulse Ox 98 09/27/20 05:20 Discharge Plan Discharge Patient Disposition: Home Condition: Good Prescriptions: New ibuprofen 800 mg Tablet 800 mg PO TID Qty: 60 RF: 0 hydrocodone-acetaminophen 5-325 mg Tablet 1 tab PO Q6H PRN (Reason: Moderate To Severe Pain) Qty: 15 RF: 0 Continued acetaminophen [Tylenol Extra Strength] 500 mg tablet 500 mg PO Q6H PRN (Reason: pain) RF: 0 prenat.vits,khushbu,vee-[id number] Tablet 1 tab PO DAILY RF: 0 Iron (ferrous sulfate) 325 mg (65 mg iron) tablet 325 mg PO BID RF: 0 Discharge Orders: Discharge Order (Routine); Ordered 09/27/20 Ordered By: Robin Gudino Referrals: Robin Gudino MD [Physician] - 11/08/20 9:30 am (* Your [address] week appointment is with Dr. Gudino 11/08/2019 at 9:30am ) Discharge Diet: Advance as tolerated Discharge Activity: Increase activity as tolerated Patient Instructions: Hydrocodone/Acetaminophen (By mouth), Ibuprofen (By mouth), Your Casmalia's Appearance (DC), Vaginal Delivery (DC), OB Discharge Report, OB Anesthesia Instructions, OB Food/Drug Interaction Guide Activity Restrictions/Additional Instructions: Nothing per vagina for 6 weeks. Showers would be recommended over baths for 6 weeks. Discharge Attestations Time Spent in Discharge Care*: greater than 30 min Quality Metrics Clinical Quality Measures During this hospital stay, did patient experience: None Coding Level of Care Code Acute Cdl Driver for Chg Fwd Diagnoses Anemia D64.9 Intrauterine Z34.90
[2020-09-27] MEDS: ibuprofen 800 mg tablet PO (08:54)
[2020-09-27] MEDS: docusate sodium 100 mg Capsule PO (08:54)
[2020-09-27] MEDS: prenatal vitamin Capsule 1 CAP PO (08:54)
[2020-09-27 10:43] VITALS: BP 124/75; PULSE 120; RESP 16; TEMP 36.5; O2SAT 97
[2020-09-27 13:44] VITALS: BP 117/75; PULSE 73; RESP 16; TEMP 36.7
== END 2020-09-27 14:07 | disposition home or self-care (01) | DRG 807 ==
PROVIDERS: Admitting Provider Family Medicine; PCP Registered Nurse; Visit Provider Family Medicine
DX: O48.0 Post-term pregnancy (principal); Z37.0 Single live birth; Z3A.40 40 weeks gestation of pregnancy; O13.4 Gestational [pregnancy-induced] hypertension without significant proteinuria, complicating childbirth; O99.02 Anemia complicating childbirth; D64.9 Anemia, unspecified; O76 Abnormality in fetal heart rate and rhythm complicating labor and delivery; O69.81X0 Labor and delivery complicated by cord around neck, without compression, not applicable or unspecified
CPT/HCPCS: 12345; 36415; 51702; 59025; 59409; 85025; 85027; 96374; 96375; J0595; J2405; J2795; J3010

== ENCOUNTER → 2020-11-03 10:22 | Outpatient (BNVA) | payer OTHER, SELFPAY | PROVIDERS: PCP Registered Nurse; Visit Provider Nurse Practitioner Family | DX: J06.9 Acute upper respiratory infection, unspecified (principal); Z20.828 Contact with and (suspected) exposure to other viral communicable diseases | CPT/HCPCS: 87635 ==

== ENCOUNTER 2023-06-10 10:51 | Emergency (ER) | payer OTHER, SELFPAY ==
[2023-06-10 11:06] VITALS: BP 106/71; PULSE 60; RESP 16; TEMP 36.6; O2SAT 100; BMI 22.8
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
== END 2023-06-10 13:13 | disposition home or self-care (01) ==
PROVIDERS: Emergency Provider Physician Assistant; PCP Registered Nurse
DX: S16.1XXA Strain of muscle, fascia and tendon at neck level, initial encounter (principal); S39.012A Strain of muscle, fascia and tendon of lower back, initial encounter; V89.2XXA Person injured in unspecified motor-vehicle accident, traffic, initial encounter
CPT/HCPCS: 70450; 72072; 72100; 72125; 99284

== ENCOUNTER → 2023-08-15 10:27 | Outpatient (BNVA) | payer OTHER, SELFPAY | PROVIDERS: PCP Registered Nurse; Visit Provider Nurse Practitioner Women's Health | DX: Z30.017 Encounter for initial prescription of implantable subdermal contraceptive (principal) | CPT/HCPCS: 81025 ==

== ENCOUNTER → 2023-11-05 12:00 | Outpatient (BNVA) | payer OTHER, SELFPAY | PROVIDERS: PCP Registered Nurse; Visit Provider Nurse Practitioner Women's Health | DX: R30.0 Dysuria (principal); Z12.4 Encounter for screening for malignant neoplasm of cervix; Z11.3 Encounter for screening for infections with a predominantly sexual mode of transmission | CPT/HCPCS: 84315; 86592; 86803; 87077; 87086; 87184; 87340; 87491; 87591; 87624; 87806 ==

== ENCOUNTER → 2024-01-08 11:06 | Outpatient (BNVA) | payer OTHER, SELFPAY | PROVIDERS: PCP Registered Nurse; Visit Provider Nurse Practitioner Women's Health | DX: D27.9 Benign neoplasm of unspecified ovary (principal) | CPT/HCPCS: 76830 ==